=== PATIENT | female | born 1970 | race African-American/Black ===

== ENCOUNTER 2019-01-15 11:12 | Emergency (ER) | payer OTHER ==
[~2019-01-15] VITALS: Ht 170.2 cm; Wt 90.7 kg
[2019-01-15] MEDS ORDERED: KETOROLAC TROMETHAMINE 60 MG/2 ML VIAL IM ONE (11:45)
== END 2019-01-15 11:43 | disposition home or self-care (01) ==
LOC: FSED 11:12
DX: M79.621 Pain in right upper arm (principal); S46.111A Strain of muscle, fascia and tendon of long head of biceps, right arm, initial encounter; J45.909 Unspecified asthma, uncomplicated; X50.0XXA Overexertion from strenuous movement or load, initial encounter; Y92.008 Other place in unspecified non-institutional (private) residence as the place of occurrence of the external cause
CPT/HCPCS: 99283; J1885